=== PATIENT | female | born 1935 | race Caucasian/White ===

== ENCOUNTER 2016-09-23 09:47 | Observation (INO) | payer MEDICARE, OTHER ==
[2016-09-22 09:55] LABS: BASOPHILS 0.6 %; BASOPHILS ABSOLUTE 0.03 10/3/uL (0.0-0.16); EOSINOPHILS 3.2 %; EOSINOPHILS ABSOLUTE 0.16 10/3/uL (0.0-0.53); HEMATOCRIT 37.3 % (36.0-48.0); HEMOGLOBIN 12.1 g/dL (12.0-16.0); IMMATURE GRANULOCYTES 0.2 %; IMMATURE GRANULOCYTES ABSOLUTE 0.01 10/3/uL (0.0-0.11); LYMPHOCYTES 10.6 %; LYMPHOCYTES ABSOLUTE 0.53 10/3/uL (0.67-4.30); MANUAL DIFF NO %; MEAN CORPUS HGB CONC 32.4 g/dL (32.0-36.0); MEAN CORPUSCULAR HEMOGLOB 29.7 pg (26.0-34.0); MEAN CORPUSCULAR VOLUME 91.4 fL (80-100); MEAN PLATELET VOLUME 9.5 fL (9.2-13.0); MONOCYTES 14.9 %; MONOCYTES ABSOLUTE 0.75 10/3/uL (0.21-1.20); NEUTROPHILS 70.5 %; NEUTROPHILS ABSOLUTE 3.54 10/3/uL (2.02-8.40); PLATELET COUNT 274 10/3/uL (150-400); RBC DISTRIBUTION WIDTH 14.3 % (12.0-16.0); RED CELL COUNT 4.08 10/6/uL (4.0-5.6)
[2016-09-22 10:18] LABS: CALCIUM, SERUM 9.6 MG/DL (8.5-10.4); CHLORIDE, SERUM 101 MMOL/L (96-112); CO2 (CARBON DIOXIDE) 29 MMOL/L (24-34); CREATININE 0.98 MG/DL (0.55-1.02); FREE T4 1.27 NG/DL (0.76-1.46); GFR AFRICAN AMERICAN 63 ML/MIN (>=60); GFR NON AFRICAN AMERICAN 54 ML/MIN (>=60); GLUCOSE, SERUM 107 MG/DL (60-99); POTASSIUM, SERUM 4.1 MMOL/L (3.5-5.3); SODIUM, SERUM 135 MMOL/L (135-148)
[2016-09-22 10:19] LABS: BUN (BLOOD UREA NITROGEN) 20 MG/DL (6-23)
--- NOTE | ~2016-09-23 | OP ---
Record Of Operation [facility] [address] [place]. [address] NAME: ROMAN HACKETT : 35 STATUS : ADM Patrick PAT#: [id number] AGE: 80 ADM/REG DATE : 09/23/16 MR#: [id number] REPORT SERV DATE: 09/23/16 DICTATED BY: SALEEM MATTHEWS DATE: 09/23/16 REPORT STATUS : Draft TRANSCRIBED BY: MODL DATE: 09/23/16 DATE OF PROCEDURE: 09/23/2016 PREOPERATIVE DIAGNOSES: 1. Left lower extremity claudication. 2. 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 POSTOPERATIVE DIAGNOSES: 1. Significant stenosis of the celiac artery. 2. 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 3. Moderate stenosis of both common iliacs. 4. Significant stenosis of the proximal superficial femoral artery and the mid distal superficial femoral artery on the left side. SURGERY PERFORMED: 1. Aortogram. 2. Bilateral lower extremity runoffs. 3. Balloon angioplasty and stenting of the left superficial femoral artery. SURGEON: Saleem Matthews M.D. NEUROLOGY SPECIALIST: Edvin. DESCRIPTION OF PROCEDURE: The patient was placed under IV sedation. Both groins were prepped and draped in a sterile fashion. Right femoral artery cannulated with ultrasound direction. Needle, wire, and sheath were placed. Preoperatively, the patient had questionable mesenteric symptoms. A CT scan showed stenosis of the mesenteric vessels. The patient was not clearly symptomatic. However, angiogram was done first doing a lateral aortogram of the upper abdominal aorta and this aortogram showing that the celiac was significantly diseased, probably 80% to 90%. The SMA was 60 possibly 70 at most percent stenosis. Aorta was very calcified. The UF was pulled down and then the aortogram down below showing both renals were patent, both common iliacs were patent. There appeared to be some stenosis at the bifurcation. Pulling down the UF runoff films showing the left common iliac external and internal were patent. The common femoral was patent. There was a stenosis of the left SFA proximally which is probably 90% plus. A second area in the mid thigh that is calcified showing a longer area of stenosis probably 3 or 4 cm being probably 80%. Popliteal was patent with two-vessel runoff. On the right side, the common, external, and internal iliacs were patent. The common femoral, profunda, SFA, popliteal, two-vessel runoff. With this finding, a UF was manipulated up and over the bifurcation. A 6 x 45 placed up and over the bifurcation. A wire and a catheter placed down through the superficial femoral artery. Repeat film showing the exact degree of stenosis. The upper stenotic area of the SFA was ballooned with a 4 x 10 balloon. After balloon angioplasty for approximately three minutes, repeat film showing no residual stenosis. Down in the midthigh region, a second area was noted. This was also ballooned with 4 balloon, and after balloon angioplasty, the patient was shown to have a significant dissection; due to the dissection being present, this was then stented using a 6 x 60 self-expanding stent. When this was Record Of Operation [address] [address] NAME: ROMAN HACKETT : 35 STATUS : ADM Patrick PAT#: [id number] AGE: 80 ADM/REG DATE : 09/23/16 MR#: [id number] REPORT SERV DATE: 09/23/16 DICTATED BY: SALEEM MATTHEWS DATE: 09/23/16 REPORT STATUS : Draft TRANSCRIBED BY: MODL DATE: 09/23/16 placed, this was then ballooned with a 5 balloon and then the final film showing good flow through the superficial femoral artery. The sheath was pulled back up and around to the right side. The Exoseal closure was used, which appeared to work effectively. Dry dressings were then applied. The patient tolerated the procedure well and went to recovery room in good condition. MG/ZACK Saleem Matthews M.D. / [id number] CC: Ander Dale M.D.
[~2016-09-23 09:47] MED LIST: AMARYL1 MG PO; AMARYL2 PO; APRES50 PO; ASACOL PO; BETAPACE80 PO; BIOTIN5 MG PO; CELEXA10 PO; CELEXA20 PO; CIP5 PO; COZ50 PO; COZAAR100 MG PO; CRAMP RELIEF PO; DARVOCET PO; DUREZOL0.05 % OPH; FISH OIL1200 MG PO; FLORASTOR250 MG PO; FORTAMET500 MG PO; GLUCPH PO; HCTZ25B PO; HYDROCHLOROT12.5 MG PO; INHALER INH; IPRA17AE INH; KLOR-CON M2020 MEQ PO; LEG CRAMP MED PO; LEVOTHYROXIN125 MCG PO; LOP100 PO; MAGOX4 PO; MULTIPLE VIT PO; NEXIUM40 PO; NORV5 PO; OSTEO BI-FLEX1 EACH PO; P20 PO; P5 PO; PENTASA500 MG PO; PULRESP1 INH; RANITIDINE300 MG PO; REQUIP1 PO; SYNTHROID137 MCG PO; T PO; TOPROL XL200 MG PO; TOPXL100 PO; TOPXL50 PO; VITAMIN D31000 UNIT PO; XARELTO15 MG PO; ZANTAC300 MG PO
[2016-09-24] MEDS ORDERED: ASA5GR PO (09:17)
== END 2016-09-24 10:16 | disposition home or self-care (01) ==
LOC: SDC 09:47 → 2SO 18:40
PROVIDERS: Surgery Vascular Surgery
PROC: B41DZZZ Fluoroscopy of Aorta and Bilateral Lower Extremity Arteries (ICD-10-PCS; principal; 2016-09-23 10:45)
PROC: 047L3DZ Dilation of Left Femoral Artery with Intraluminal Device, Percutaneous Approach (ICD-10-PCS; 2016-09-23 10:45)
DX: I70.202 Unspecified atherosclerosis of native arteries of extremities, left leg (principal); I77.4 Celiac artery compression syndrome; K55.1 Chronic vascular disorders of intestine; I70.8 Atherosclerosis of other arteries; I25.10 Atherosclerotic heart disease of native coronary artery without angina pectoris; E11.9 Type 2 diabetes mellitus without complications; E03.9 Hypothyroidism, unspecified; K21.9 Gastro-esophageal reflux disease without esophagitis; G47.33 Obstructive sleep apnea (adult) (pediatric); Z88.2 Allergy status to sulfonamides; Z88.1 Allergy status to other antibiotic agents; Z79.84 Long term (current) use of oral hypoglycemic drugs; Z79.01 Long term (current) use of anticoagulants; Z79.899 Other long term (current) drug therapy
CPT/HCPCS: 37226; 75625; 75716; 80048; 82962; 84439; 84443; 85025; 93005; A9270-GY; C1725; C1760; C1769; C1876; C1894; G0378; J0690; J2250; J2370; J3010; Q9967